=== PATIENT | male | born 1960 | race African-American/Black ===

== ENCOUNTER 2016-09-21 15:25 | Emergency (ER) | payer OTHER ==
--- NOTE | ~2016-09-21 | CR229 ---
[facility] A Service of [facility] RADIOLOGY TEXT RESULTS PATIENT: ROGER FATIMA LOCATION: [facility] : 62 UNIT #: [id number] AGE: [address]: May Jay APRN SEX: M ORDER DR: [id number] [facility] [address] [place], [place] [address] [id number] MR#: [id number] Acc #: [id number] NAME: ROGER FATIMA : 1960 SEX: M STUDY DATE/TIME: 09/21/2016 16:04 UNIT: [facility] ROOM: STUDY DESCRIPTION: CR Shoulder Min 2 View Lt Attending Physician: May Jay A.P.R.N. Ordering Physician: Sudeep Chow M.D. [facility] RE[facility] This report is preliminary unless electronic signature is present EXAM Left shoulder 2 views HISTORY Shoulder pain for 1 month. No injury. FINDINGS 2 views of left shoulder demonstrates satisfactory shoulder alignment. No fracture, or dislocation. No abnormal sclerosis. IMPRESSION Negative Dictated by... Shan Thomason M.D. THIS IS AN ELECTRONICALLY VERIFIED REPORT Shan Thomason M.D. at 09/22/2016 10:31 PM BLADE/rayray TD: 09/22/2016 00:38 JOB #: [id number] MEDICAL IMAGING REPORT Page 1 of 1 COPY
[~2016-09-21 15:25] MED LIST: ALBUTEROL17 G1 IH; ALBUTEROL17 GM INH; AMOXICILLIN PO; AZITHROMYCIN250 MG PO; BACTRIM DS TABL1 TAB PO; E-MYCIN250 MG PO; IBUPROFEN PO; LEVAQUIN PO; MEDROL PO; MEDROL4 MG/DOSE- PO; NAPROXEN PO; NO MEDICATIONS; PREDNISONE PO; ROBITUSSIN S/F118 ML PO; TESSALON200 MG PO
== END 2016-09-21 17:00 | disposition home or self-care (01) ==
LOC: CFTX 15:25 → CED 15:25 → CFTX 16:41
DX: S43.422A Sprain of left rotator cuff capsule, initial encounter (principal); D86.9 Sarcoidosis, unspecified; X58.XXXA Exposure to other specified factors, initial encounter; Y92.9 Unspecified place or not applicable
CPT/HCPCS: 73030; 99283